=== PATIENT | female | born 1940 | race Caucasian/White ===

== ENCOUNTER → 2017-04-22 | Outpatient (CLI) | payer MEDICARE, MEDICAID ==
[~2017-04-22] MED LIST: ANTIVERT 25MG25 MG PO; FOSAMAX 70MG TA70 MG PO; LEVOXYL0.075 MG PO; NORVASC 5MG5 MG/TAB PO; PRAVACHOL 40MG40 MG PO; VALIUM 2MG T2 MG/TAB PO
[2017-04-22 11:48] LABS: ALBUMIN 3.8 gm/dL (3.5-5.0); BILIRUBIN,TOTAL 0.9 mg/dL (0.0-1.0); CALCIUM 8.8 mg/dL (8.4-10.2); CREATININE, serum 0.75 mg/dL (0.52-1.25); POTASSIUM 4.2 mmol/L (3.4-5.0); TOTAL PROTEIN 7.5 gm/dL (6.4-8.2)
[2017-04-22 12:49] LABS: THYROID STIMULATING HORMONE 0.603 uIU/mL (0.465-4.680)
== END ==
LOC: COL.LAB 10:56
PROVIDERS: Dietitian, Registered
DX: E03.9 Hypothyroidism, unspecified (principal); I10 Essential (primary) hypertension; E78.5 Hyperlipidemia, unspecified

== ENCOUNTER → 2018-02-17 | Outpatient (CLI) | payer MEDICARE, MEDICAID ==
[2018-02-17 10:34] LABS: ALBUMIN 3.8 gm/dL (3.5-5.0); BILIRUBIN,TOTAL 0.5 mg/dL (0.0-1.0); CALCIUM 9.2 mg/dL (8.4-10.2); CHOLESTEROL RISK RATIO 3.5; CREATININE, serum 0.75 mg/dL (0.52-1.25); POTASSIUM 4.3 mmol/L (3.4-5.0); TOTAL PROTEIN 8.1 gm/dL (6.4-8.2)
[2018-02-17 11:04] LABS: THYROID STIMULATING HORMONE 0.275 uIU/mL (0.465-4.680)
== END ==
LOC: COL.LAB 09:31
PROVIDERS: Family Medicine
DX: I10 Essential (primary) hypertension (principal); E78.5 Hyperlipidemia, unspecified; E03.4 Atrophy of thyroid (acquired)

== ENCOUNTER → 2018-05-31 | Outpatient (CLI) | payer MEDICARE, MEDICAID | LOC: COL.LAB 09:40 | DX: E03.4 Atrophy of thyroid (acquired) (principal) ==

== ENCOUNTER → 2019-03-16 | Outpatient (CLI) | payer MEDICARE, MEDICAID ==
[2019-03-16 10:26] LABS: ALBUMIN 4.2 gm/dL (3.5-5.0); BILIRUBIN,TOTAL 0.9 mg/dL (0.0-1.0); CALCIUM 9.5 mg/dL (8.4-10.2); CHOLESTEROL RISK RATIO 3.9; CREATININE, serum 0.91 (0.52-1.25); POTASSIUM 4.5 mmol/L (3.4-5.0); TOTAL PROTEIN 8.2 gm/dL (6.4-8.2)
[2019-03-16 10:55] LABS: THYROID STIMULATING HORMONE 0.628 uIU/mL (0.465-4.680)
== END ==
LOC: COL.LAB 09:30
PROVIDERS: Family Medicine
DX: E78.5 Hyperlipidemia, unspecified (principal); E03.9 Hypothyroidism, unspecified

== ENCOUNTER → 2019-10-19 | Outpatient (CLI) | payer MEDICARE, MEDICAID ==
[2019-10-19 13:14] LABS: ALBUMIN 4.1 gm/dL (3.5-5.0); BILIRUBIN,TOTAL 0.4 mg/dL (0.0-1.0); CALCIUM 9.2 mg/dL (8.4-10.2); CREATININE, serum 0.85 (0.52-1.25); POTASSIUM 4.2 mmol/L (3.4-5.0); TOTAL PROTEIN 8.2 gm/dL (6.4-8.2)
[2019-10-19 13:45] LABS: THYROID STIMULATING HORMONE 2.53 uIU/mL (0.465-4.680)
== END ==
LOC: COL.LAB 12:31
PROVIDERS: Family Medicine
DX: E03.4 Atrophy of thyroid (acquired) (principal)

== ENCOUNTER → 2020-04-04 | Outpatient (CLI) | payer MEDICARE, MEDICAID ==
[2020-04-04 16:25] LABS: ALBUMIN 4.1 gm/dL (3.5-5.0); BILIRUBIN,TOTAL 0.9 mg/dL (0.0-1.0); CALCIUM 9.2 mg/dL (8.4-10.2); CHOLESTEROL RISK RATIO 3.7; CREATININE, serum 0.74 (0.52-1.25); POTASSIUM 4.1 mmol/L (3.4-5.0)
[2020-04-04 16:55] LABS: THYROID STIMULATING HORMONE 2.09 uIU/mL (0.465-4.680)
== END ==
LOC: COL.LAB 15:13
PROVIDERS: Family Medicine
DX: I10 Essential (primary) hypertension (principal); E03.4 Atrophy of thyroid (acquired); E78.5 Hyperlipidemia, unspecified

== ENCOUNTER 2020-07-07 18:30 | Emergency (ER) | payer MEDICARE, MEDICAID ==
[2020-07-07 18:41] VITALS: TEMP 98.3
[2020-07-07 21:17] LABS: COLLECTION METHOD CLEAN CATCH
[2020-07-07 21:26] LABS: MUCOUS Present /lpf; PH 6 (5-8); SQUAMOUS EPITHELIAL 0-2 /hpf; URINE APPEARANCE Clear; URINE BACTERIA None Seen /hpf; URINE BILIRUBIN Negative (NEGATIVE); URINE BLOOD 1+ (NEGATIVE); URINE COLOR Straw; URINE GLUCOSE Negative (NEGATIVE); URINE KETONE Negative (NEGATIVE); URINE LEUKOCYTE ESTERASE Trace (NEGATIVE); URINE NITRATE Negative (NEGATIVE); URINE PROTEIN(semi-quant) Negative (NEGATIVE); URINE UROBILINOGEN Negative (NEGATIVE)
[2020-07-07 21:40] VITALS: BP 128/87; PULSE 70
== END 2020-07-07 21:40 | disposition home or self-care (01) ==
LOC: COL.ER 18:30
PROVIDERS: Emergency Medicine
DX: N81.9 Female genital prolapse, unspecified (principal); I10 Essential (primary) hypertension

== ENCOUNTER 2020-08-26 08:54 | Day surgery (SDC) | payer MEDICARE, MEDICAID ==
[~2020-08-26] VITALS: Ht 162.6 cm; Wt 61.1 kg
[2020-08-26] VITALS (10 sets, daily range): BP systolic 116–146; BP diastolic 58–89; PULSE 61–99; TEMP 97–98.6
[~2020-08-26 08:54] MED LIST changes: -LEVOXYL0.075 MG PO; +SYNTHROID0.075 MG/T PO
[2020-08-26] MEDS ORDERED: MASON NATURAL2000 IU PO (09:00)
--- NOTE | 2020-08-26 15:04 | NUR ---
1500 PATIENT AMBULATE TO BATHRROM, VOIDS WITHOUT DIFFICULTY. SITS UP IN BED EATING PUDDING AND CRACKERS AND 7UP.
--- NOTE | 2020-08-26 17:50 | NUR ---
5396 PATIENT SITTING UP IN BED EATING SUPPER, DENIES NEEDS OR PAIN AT THIS TIME
[2020-08-27] VITALS: BP 115/66; PULSE 74; TEMP 98.9
[2020-08-27 04:00] VITALS: BP 111/58; PULSE 77; TEMP 98.9
[2020-08-27 07:15] VITALS: BP 104/74; PULSE 69; TEMP 96.8
--- NOTE | 2020-08-27 09:58 | NUR ---
0960 DISCHARGE INSTRUCTIONS REVIEWED WITH PATIENT AND PATIENT'S DAUGHTER. BOTH VERBALIZED UNDERSTANDING. 0981 ALL PERSONAL BELONGINGS GATHERED FROM PATIENT ROOM. PATIENT LEFT AMBULATORY AND IN NO APPARENT DISTRESS. PATIENT ACCOMPANIED BY DAUGHTER AND THIS RN.
--- NOTE | 2020-08-27 10:00 | NUR ---
Initial visit; Patient and her daughter thanked [employer] for offering spiritual care, especially for keeping Hermelinda in her prayers.
== END 2020-08-27 09:50 | disposition home or self-care (01) ==
LOC: SDCO 08:54 → OB 12:36 → SDCO 08-27 09:50
DX: N81.2 Incomplete uterovaginal prolapse (principal); I10 Essential (primary) hypertension; Z20.828 Contact with and (suspected) exposure to other viral communicable diseases; E78.00 Pure hypercholesterolemia, unspecified; E07.9 Disorder of thyroid, unspecified; Z80.3 Family history of malignant neoplasm of breast; Z80.1 Family history of malignant neoplasm of trachea, bronchus and lung; Z79.899 Other long term (current) drug therapy
CPT/HCPCS: OP; J0690; J1885; J2405; J2704; J3010; J7120

== ENCOUNTER → 2020-09-26 | Outpatient (CLI) | payer MEDICARE, MEDICAID ==
[~2020-09-26] MED LIST changes: +MASON NATURAL2000 IU PO
== END ==
LOC: COL.LAB
DX: E03.4 Atrophy of thyroid (acquired) (principal)

== ENCOUNTER → 2021-01-14 | Outpatient (CLI) | payer MEDICARE, MEDICAID | LOC: COL.LAB 10:44 | DX: E03.4 Atrophy of thyroid (acquired) (principal) ==

== ENCOUNTER → 2021-04-17 | Outpatient (CLI) | payer MEDICARE, MEDICAID ==
[2021-04-17 10:13] LABS: BILIRUBIN,TOTAL 0.5 mg/dL (0.0-1.0); CALCIUM 9.2 mg/dL (8.4-10.2); CREATININE, serum 0.78 (0.52-1.25); POTASSIUM 4.2 mmol/L (3.4-5.0); TOTAL PROTEIN 7.8 gm/dL (6.4-8.2)
[2021-04-17 10:23] LABS: CHOLESTEROL RISK RATIO 3.9
== END ==
LOC: COL.LAB 08:55
PROVIDERS: Family Medicine
DX: E78.5 Hyperlipidemia, unspecified (principal)

== ENCOUNTER 2021-07-04 12:46 | Emergency (ER) | payer MEDICARE, MEDICAID ==
[~2021-07-04] VITALS: Ht 162.6 cm; Wt 60.9 kg
[2021-07-04 13:03] VITALS: TEMP 98.1
[2021-07-04 18:41] VITALS: BP 140/80; PULSE 80
== END 2021-07-04 15:30 | disposition home or self-care (01) ==
LOC: COL.ER 12:46
DX: S60.222A Contusion of left hand, initial encounter (principal); I10 Essential (primary) hypertension; Z79.899 Other long term (current) drug therapy; W01.0XXA Fall on same level from slipping, tripping and stumbling without subsequent striking against object, initial encounter; Y93.01 Activity, walking, marching and hiking